=== PATIENT | female | born 1965 | race Caucasian/White ===

== ENCOUNTER 2020-10-22 14:16 | Emergency (ER) | payer MEDICAID, OTHER ==
[~2020-10-22] VITALS: Ht 152.4 cm; Wt 84.1 kg
[2020-10-22 16:07] VITALS: BP 134/88
[2020-10-22 16:18] LABS: GLUCOMETER DEV NAME(LOC) ERT.5; GLUCOSE,POINT OF CARE 115 MG/DL (70-110)
[2020-10-22] MEDS ORDERED: CLOP75TA60 PO (16:44)
[2020-10-22] MEDS ORDERED: EZET10TA57 PO (16:44)
[2020-10-22] MEDS ORDERED: METH-661 PO (16:44)
[2020-10-22] MEDS ORDERED: GUAI120S43 PO (16:44)
[2020-10-22] MEDS ORDERED: CYCL12OS OU (16:44)
[2020-10-22] MEDS ORDERED: BENZ-70 PO (16:44)
[2020-10-22] MEDS ORDERED: SITA50 PO (16:44)
[2020-10-22] MEDS ORDERED: CYCL10 PO (16:44)
[2020-10-22] MEDS ORDERED: HYDR-4396 PO (16:44)
[2020-10-22] MEDS ORDERED: PROM-163 PO (16:44)
[2020-10-22] MEDS ORDERED: ONDA-104 PO (16:44)
[2020-10-22] MEDS ORDERED: LISI-894 PO (16:44)
[2020-10-22] MEDS ORDERED: KETO.5OS OU (16:44)
[2020-10-22] MEDS ORDERED: PRED10 PO (16:44)
[2020-10-22] MEDS ORDERED: ALBU8HFA IH (16:44)
[2020-10-22] MEDS ORDERED: DICY10 PO (16:44)
[2020-10-22] MEDS ORDERED: ASPI-1450 PO (16:44)
[2020-10-22] MEDS ORDERED: NAPR-1181 PO (16:44)
[2020-10-22] MEDS ORDERED: TELM1TAB18 PO (16:44)
[2020-10-22] MEDS ORDERED: PRED20 PO (16:44)
[2020-10-22] MEDS ORDERED: OMEP20 PO (16:44)
[2020-10-22] MEDS ORDERED: CITA-144 PO (16:44)
[2020-10-22] MEDS ORDERED: ATOR40TA28 PO (16:44)
[2020-10-22] MEDS ORDERED: FLU15OS OU (16:44)
[2020-10-22] MEDS ORDERED: IBUP-2124 PO (16:44)
[2020-10-22] MEDS ORDERED: PROM473S4 PO (16:44)
[2020-10-22] MEDS ORDERED: METO5TAB87 PO (16:44)
== END 2020-10-22 16:51 | disposition home or self-care (01) ==
LOC: EMS 14:20
DX: F32.9 Major depressive disorder, single episode, unspecified (principal); R45.851 Suicidal ideations; E11.9 Type 2 diabetes mellitus without complications; I10 Essential (primary) hypertension
CPT/HCPCS: 82962; 99285